=== PATIENT | female | born 1975 | race Caucasian/White ===

== ENCOUNTER 2021-08-17 22:14 | Emergency (ER) | payer SELFPAY ==
[~2021-08-17] VITALS: Ht 152.4 cm; Wt 77.3 kg
[2021-08-17] MEDS ORDERED: VANCOMYCIN 1.5 GM in IV NORMAL SALINE 500ML BAG 500 ML IV ONE (23:15)
[2021-08-17 23:19] LABS: BASO % 0 % (0-3); EOS # 0.1 x10^3/uL (0.0-0.7); EOS % 2 % (0-3); HEMATOCRIT 42.9 % (36.0-47.0); HEMOGLOBIN 14.6 g/dL (12.0-15.5); LYMPH # 0.5 x10^3/uL (1.0-4.8); LYMPH % 6 % (24-48); MEAN CORPUSCULAR HEMOGLOBIN 30 pg (25-35); MEAN CORPUSCULAR HGB CONC 34 g/dL (31-37); MEAN CORPUSCULAR VOLUME 89 fL (79-100); MONO # 0.5 x10^3/uL (0.0-1.1); MONO % 6 % (0-9); NEUT % 87 % (31-73); PLATELET COUNT 285 x10^3/uL (140-400); RED BLOOD COUNT 4.85 x10^6/uL (3.50-5.40); RED CELL DISTRIBUTION WIDTH 13.2 % (11.5-14.5); WHITE BLOOD COUNT 9.3 x10^3/uL (4.0-11.0)
[2021-08-17 23:20] LABS: BILIRUBIN,URINE NEGATIVE (NEG); CLARITY,URINE CLOUDY; COLOR,URINE YELLOW; NITRITE,URINE NEGATIVE (NEG); PROTEIN,URINE NEGATIVE (NEG-TRACE)
[2021-08-17 23:25] LABS: CALCIUM 8.6 mg/dL (8.5-10.1); CREATININE 0.9 mg/dL (0.6-1.0); GFR 66.8; POTASSIUM 3.8 mmol/L (3.5-5.1)
[2021-08-17 23:27] LABS: U PREG PATIENT NEGATIVE (NEG)
[2021-08-17 23:30] LABS: BACTERIA,URINE FEW /HPF (0-FEW); RBC,URINE OCC /HPF (0-2); WBC,URINE OCC /HPF (0-4)
[2021-08-17 23:31] LABS: ALBUMIN 3.5 g/dL (3.4-5.0); ALBUMIN/GLOBULIN RATIO 0.8 (1.0-1.7); AMORPHOUS SEDIMENT,UR PRESENT /HPF; TOTAL BILIRUBIN 0.2 mg/dL (0.2-1.0); TOTAL PROTEIN 7.8 g/dL (6.4-8.2)
[2021-08-17 23:43] LABS: INFLUENZA A PATIENT NEGATIVE (NEGATIVE); INFLUENZA B PATIENT NEGATIVE (NEGATIVE)
[2021-08-17] MEDS ORDERED: diphenhydrAMINE 50 MG/ML VIAL IVP ONE (23:45)
[2021-08-17] MEDS ORDERED: cefTRIAXone IV Push 1 GM VIAL. IVP ONE (23:45)
[2021-08-17] MEDS ORDERED: PROCHLORPERAZINE 10 MG/2 ML VIAL. IV ONE (23:45)
[2021-08-17] MEDS ORDERED: IV NORMAL SALINE 1000ML BAG 1,000 ML IV ONE (23:45)
[2021-08-17] MEDS ORDERED: ACETAMINOPHEN 500 MG TABLET PO ONE (23:45)
--- NOTE | 2021-08-18 00:31 | RAD ---
Single view chest dated 08/18/2021 12:28 AM: COMPARISON: None Clinical Indication: Covid 19. Findings: Single upright portable exam of the chest was performed. Heart and mediastinal contours within normal limits. There is some vague patchy opacity at the perihilar regions. No consolidation or pleural eff usion. No pneumothorax.. IMPRESSION: 1. Vague patchy perihilar opacities, nonspecific. This could be related atelectasis or early pneumoni tis. Covid 19 not excluded. Electronically signed by: Pablo Hernandez MD (08/18/2021 12:29 AM) [facility]
[2021-08-18] MEDS ORDERED: IV NORMAL SALINE 1000ML BAG 1,000 ML IV ONE (01:30)
[2021-08-18] MEDS ORDERED: KETOROLAC 30 MG/ML VIAL. IVP ONE (02:00)
--- NOTE | 2021-08-18 03:31 | PHYS DOC ---
Past Medical History Past Surgical History: Hysterectomy Smoking Status: Current Every Day Smoker Alcohol Use: None General Adult EDM: Chief Complaint: ABDOMINAL PAIN HPI: HPI: Patient is a 46 year old female who presents with headache, muscle aches, fever/chills for past 2 days. Started with a headache 2 days ago. Not thunderclap onset. Gradually worsened. Does think that this may be the worst headache of her life. Worse with bright lights and sounds. No speech difficulty, numbness, weakness. Pain is throbbing, goes towards the back of her head and into her neck. Not vaccinated against COVID. Is not sure of any sick contacts. Complains of diffuse muscle aches everywhere, worse in her lower back Review of Systems: Review of Systems: Constitutional: Reports fevers and chills. Eyes: Denies change in visual acuity. [] HENT: Denies nasal congestion or sore throat. [] Respiratory: Reports cough. Denies shortness of breath. [] Cardiovascular: Denies chest pain or edema. [] GI: Denies abdominal pain, nausea, vomiting, bloody stools or diarrhea. [] : Denies dysuria. [] Musculoskeletal: Reports diffuse muscle aches. Reports neck pain Integument: Denies rash. [] Neurologic: Reports headache. Denies, focal weakness or sensory changes. [] Psychiatric: Denies depression or anxiety. [] Heart Score: C/O Chest Pain: No Risk Factors: Risk Factors: DM, Current or recent (<one month) smoker, HTN, HLP, family his tory of CAD, obesity. Risk Scores: Score 0 - 3: 2.5% MACE over next 6 weeks - Discharge Home Score 4 - 6: 20.3% MACE over next 6 weeks - Admit for Clinical Observation Score 7 - 10: 72.7% MACE over next 6 weeks - Early Invasive Strategies Current Medications: Current Medications Medications (Trade) Dose Ordered Sig/Kena Start Time Stop Time Status Last Admin Dose Admin Acetaminophen (Tylenol) 1,000 mg 1X ONCE 08/17/21 23:45 08/17/21 23:46 DC 08/17/21 23:45 1,000 MG Ceftriaxone Sodium (Rocephin) 2 gm 1X ONCE 08/17/21 23:45 08/17/21 23:46 DC Diphenhydramine HCl (Benadryl) 25 mg 1X ONCE 08/17/21 23:45 08/17/21 23:46 DC 08/17/21 23:47 25 MG Ketorolac Tromethamine (Toradol 30mg Vial) 15 mg 1X ONCE 08/18/21 02:00 08/18/21 02:01 DC 08/18/21 01:52 15 MG Prochlorperazine Edisylate (Compazine) 10 mg 1X ONCE 08/17/21 23:45 08/17/21 23:46 DC 08/17/21 23:49 10 MG Sodium Chloride 1,000 ml @ 1,000 mls/hr 1X ONCE 08/18/21 01:30 08/18/21 02:29 DC 08/18/21 01:51 1,000 MLS/HR Vancomycin HCl 1.5 gm/Sodium Chloride 500 ml @ 250 mls/hr 1X ONCE 08/17/21 23:15 08/17/21 23:46 DC Allergies: Allergies: Allergies Coded Allergies Type Severity Reaction Last Updated Verified No Known Drug Allergies 08/17/21 No Physical Exam: PE: Constitutional: Crying, screaming. Neck: No nuchal rigidity, able to flex chin to chest. Cardiovascular:Heart rate regular rhythm, no murmur [] Lungs & Thorax: Bilateral breath sounds clear to auscultation [] Abdomen: Bowel sounds normal, soft, no tenderness, no masses, no pulsatile masses. [] Skin: Warm, dry, no erythema, no rash. [] Back: No tenderness, no CVA tenderness. [] Extremities: No tenderness, no cyanosis, no clubbing, ROM intact, no edema. [] Neurologic: Alert, oriented x3. Speech normal. Face symmetric. EOMI. Pupils 2 mm, equal, round, reactive. Normal upper and lower extremity strength and coordination. Normal sensation bilaterally. No lower extremity drift. No pronator drift in the upper extremities. Current Patient Data: Labs: Laboratory Tests Test 08/17/21 22:55 08/17/21 23:10 White Blood Count 9.3 x10^3/uL (4.0-11.0) Red Blood Count 4.85 x10^6/uL (3.50-5.40) Hemoglobin 14.6 g/dL (12.0-15.5) Hematocrit 42.9 % (36.0-47.0) Mean Corpuscular Volume 89 fL (79-100) Mean Corpuscular Hemoglobin 30 pg (25-35) Mean Corpuscular Hemoglobin Concent 34 g/dL (31-37) Red Cell Distribution Width 13.2 % (11.5-14.5) Platelet Count 285 x10^3/uL (140-400) Neutrophils (%) (Auto) 87 % (31-73) H Lymphocytes (%) (Auto) 6 % (24-48) L Monocytes (%) (Auto) 6 % (0-9) Eosinophils (%) (Auto) 2 % (0-3) Basophils (%) (Auto) 0 % (0-3) Neutrophils # (Auto) 8.0 x10^3/uL (1.8-7.7) H Lymphocytes # (Auto) 0.5 x10^3/uL (1.0-4.8) L Monocytes # (Auto) 0.5 x10^3/uL (0.0-1.1) Eosinophils # (Auto) 0.1 x10^3/uL (0.0-0.7) Basophils # (Auto) 0.0 x10^3/uL (0.0-0.2) D-Dimer (Naomi) 0.37 ug/mlFEU (0.00-0.50) Urine Collection Type Unknown Urine Color Yellow Urine Clarity Cloudy Urine pH 7.0 (<5.0-8.0) Urine Specific [place] 1.025 (1.000-1.030) Urine Protein Negative mg/dL (NEG-TRACE) Urine Glucose (UA) Negative mg/dL (NEG) Urine Ketones (Stick) Negative mg/dL (NEG) Urine Blood Negative (NEG) Urine Nitrite Negative (NEG) Urine Bilirubin Negative (NEG) Urine Urobilinogen Dipstick 1.0 mg/dL (0.2 mg/dL) Urine Leukocyte Esterase Negative (NEG) Urine RBC Occ /HPF (0-2) Urine WBC Occ /HPF (0-4) Urine Squamous Epithelial Cells Many /LPF Urine Amorphous Sediment Present /HPF Urine Bacteria Few /HPF (0-FEW) Urine Mucus Mod /LPF Urine Test Negative (NEG) Sodium Level 137 mmol/L (136-145) Potassium Level 3.8 mmol/L (3.5-5.1) Chloride Level 100 mmol/L (98-107) Carbon Dioxide Level 28 mmol/L (21-32) Anion Gap 9 (6-14) Blood Urea Nitrogen 17 mg/dL (7-20) Creatinine 0.9 mg/dL (0.6-1.0) Estimated GFR (Cockcroft-Gault) 66.8 BUN/Creatinine Ratio 19 (6-20) Glucose Level 98 mg/dL (70-99) Lactic Acid Level 1.6 mmol/L (0.4-2.0) Calcium Level 8.6 mg/dL (8.5-10.1) Total Bilirubin 0.2 mg/dL (0.2-1.0) Aspartate Amino Transferase (AST) 31 U/L (15-37) Alanine Aminotransferase (ALT) 65 U/L (14-59) H Alkaline Phosphatase 99 U/L (46-116) Total Protein 7.8 g/dL (6.4-8.2) Albumin 3.5 g/dL (3.4-5.0) Albumin/Globulin Ratio 0.8 (1.0-1.7) L Influenza Type A Antigen Negative (NEGATIVE) Influenza Type B Antigen Negative (NEGATIVE) SARS-CoV-2 Antigen (Rapid) Positive (NEGATIVE) *A Laboratory Tests 08/17/21 22:55 Laboratory Tests 08/17/21 22:55 Vital Signs: Vital Signs Date Time Temp Pulse Resp B/P (MAP) Pulse Ox O2 Delivery O2 Flow Rate FiO2 08/18/21 00:30 112 18 142/82 (102) 97 Room Air 08/17/21 23:00 101.3 101.3 EKG: EKG: [] Radiology/Procedures: Radiology/Procedures: [] Impression: [facility] [id number] [place], [place] [id number] IMAGING REPORT Signed PATIENT: AYLIN CANSECO ACCOUNT: [id number] : 1975 LOCATION: ER AGE: 46 SEX: F EXAM STATUS: REG ER ORD. PHYSICIAN: ERICK RUTLEDGE MD REASON: COVID PUI PROCEDURE: CHEST AP ONLY Single view chest dated 08/18/2021 12:28 AM: COMPARISON: None Clinical Indication: Covid 19. Findings: Single upright portable exam of the chest was performed. Heart and mediastinal contours within normal limits. There is some vague patchy opacity at the perihilar regions. No consolidation or pleural effusion. No pneumothorax.. IMPRESSION: 1. Vague patchy perihilar opacities, nonspecific. This could be related atelectasis or early pneumonitis. Covid 19 not excluded. Electronically signed by: Pablo Hernandez MD (08/18/2021 12:29 AM) [facility] – [place], [place] DICTATED and SIGNED BY: PABLO HERNANDEZ MD DATE: 08/18/21 [id number] Course & Med Decision Making: Course & Med Decision Making Pertinent Labs and Imaging studies reviewed. (See chart for details) Patient a 46-year-old female who presents with fever, chills, headache, and diffuse body aches. Initially tachycardic to the 130s, but otherwise hemodynamically stable. Febrile on arrival. Headache improved with Compazine, Benadryl, Tylenol, and ketorolac. She was given 2 L of IV fluids and her heart rate normalized into the 90s. Considered meningitis given her headache and fever, but she did not have any meningismus. Her white count, lactic acid were normal. And her COVID test was positive which I believe explains her symptoms well. Patient given expectant management, isolation, and return precautions. [place] Disclaimer: [place] Disclaimer: This electronic medical record was generated, in whole or in part, using a voice recognition dictation system. Departure Departure Impression: Primary Impression: COVID-19 Disposition: HOME / SELF CARE / HOMELESS Condition: STABLE Referrals: UNKNOWN PCP NAME (PCP) Additional Instructions: You have Covid. Isolation: -You will need to isolate for a minimum of 5 days from symptom onset. 08/22/2021 would be the first day that you could potentially end your isolation. -At 5 days please take a rapid COVID test, if positive continue to isolate for a full 10 days duration -At the 10-day jet (or 5-day jet with a negative COVID test), you must also have at least 3 days of no fever/chills, and improving symptoms before you end your isolation. -If you are continuing to be symptomatic or having high fevers you need to continue your isolation until you meet the above requirements. Monitoring: -Please buy a home pulse oximeter. These can be purchased [id number] most pharmacies, or on [employer]. -Check your oxygen levels once a day. If they are persistently below 90% please return to the emergency department. -If you develop chest pain or worsening shortness of breath please return to the emergency department. For fever/body aches tylenol and ibuprofen are best used on a schedule. Please alternate between the two. -Tylenol 1000 mg every 6 hours (do not exceed 4000 mg in one day) -Ibuprofen 400-600 mg every 6 hours. Take with food. Do not take for more than 1 week. ERICK RUTLEDGE MD Aug 18, 2021 03:31
[2021-08-18 05:30] VITALS: BP 103/63
== END 2021-08-18 05:45 | disposition home or self-care (01) ==
LOC: ER 22:14
DX: U07.1 COVID-19 (principal); F17.200 Nicotine dependence, unspecified, uncomplicated
CPT/HCPCS: 36415; 71045; 80053; 81001; 81025; 83605; 85025; 85379; 87040; 96361; 96374; 96375; 99285; J0780; J1200; J1885; J7030